=== PATIENT | female | born 1970 | race Caucasian/White ===

== ENCOUNTER 2016-12-15 15:30 | Emergency (ER) | payer OTHER ==
--- NOTE | 2016-12-15 15:48 | PDOC ---
History of Present Illness - General History Source: Patient Exam Limitations: No Limitations <Janes Jiang - Last Filed: 12/15/16 18:02> <CalvinrealReynaldo - Last Filed: 12/16/16 11:15> - General Chief Complaint: Chest Pain Stated Complaint: CHEST PAIN Time Seen by Provider: 12/15/16 15:48 - History of Present Illness Initial Comments: 12/15/16 15:56 The patient is a 46 year old female presenting with her friend, with a significant past medical history anxiety, who presents to the emergency department with chest pain and shortness of breath onset today for the past 5 hours. She describes the chest pain as onset when she woke up, localized on the left side, ranging from mild to moderate, without radiation. She notes that touching the area and taking a deep breath exacerbates the pain. She also notes that she has had this kind of pain before but never prolonged for this long. She states that this pain is usually brought upon by stress. The patient had a stress test 4 years ago that was within normal limits. She has a cardiology consultation set up for next week for medical clearance. She denies any recent travel or recent sickness. The patient denies headache and dizziness. Denies fever, chills, nausea, vomit, diarrhea and constipation. Denies dysuria, frequency, urgency and hematuria. Allergies: None Past surgical history: None reported Social history: Tobacco use. No alcohol, drug use reported (Janes Jiang) Past History <Janes Jiang - Last Filed: 12/15/16 18:02> - Past Medical History Anemia: No Asthma: No Cancer: No Cardiac Disorders: No CVA: No COPD: No CHF: No Dementia: No Diabetes: No GI Disorders: No Disorders: No HTN: No Hypercholesterolemia: Yes Liver Disease: No Seizures: No Thyroid Disease: No - Surgical History Abdominal Surgery: No Appendectomy: No Cardiac Surgery: No Cholecystectomy: No Lung Surgery: No Neurologic Surgery: No Orthopedic Surgery: No - Psycho/Social/Smoking Cessation Hx Anxiety: No Suicidal Ideation: No Smoking Status: No Smoking History: Former smoker Have you smoked in the past 12 months: Yes Number of Cigarettes Smoked Daily: 7 Information on smoking cessation initiated: Yes 'Breaking Loose' booklet given: 12/15/16 Hx Alcohol Use: No Drug/Substance Use Hx: No Substance Use Type: None Hx Substance Use Treatment: No <Reynaldo Guzman - Last Filed: 12/16/16 11:15> - Past Medical History Allergies/Adverse Reactions: Allergies Allergy/AdvReac Type Severity Reaction Status Date / Time No Known Allergies Allergy Verified 12/15/16 15:34 Home Medications: Ambulatory Orders No Known Home Medication 12/15/16 Cardiac Specific PMH - Complaint Specific PMHX Pacemaker: No <Reynaldo Guzman - Last Filed: 12/16/16 11:15> Review of Systems - Review of Systems Able to Perform ROS?: Yes <Janes Jiang - Last Filed: 12/15/16 18:02> <Reynaldo Guzman - Last Filed: 12/16/16 11:15> - Review of Systems Comments:: 12/15/16 15:56 GENERAL/CONSTITUTIONAL: No fever or chills. No weakness. HEAD, EYES, EARS, NOSE AND THROAT: No change in vision. No ear pain or discharge. No sore throat. CARDIOVASCULAR: +Chest pain and shortness of breath RESPIRATORY: No cough, wheezing, or hemoptysis. GASTROINTESTINAL: No nausea, vomiting, diarrhea or constipation. GENITOURINARY: No dysuria, frequency, or change in urination. MUSCULOSKELETAL: No joint or muscle swelling or pain. No neck or back pain. SKIN: No rash NEUROLOGIC: No headache, vertigo, loss of consciousness, or change in strength/ sensation. ENDOCRINE: No increased thirst. No abnormal weight change HEMATOLOGIC/LYMPHATIC: No anemia, easy bleeding, or history of blood clots. ALLERGIC/IMMUNOLOGIC: No hives or skin allergy. (Janes Jiang) *Physical Exam <Janes Jiang - Last Filed: 12/15/16 18:02> <Reynaldo Guzman - Last Filed: 12/16/16 11:15> - Vital Signs Last Vital Signs Temp Pulse Resp BP Pulse Ox 98.1 F 71 16 128/77 99 12/15/16 15:30 12/15/16 19:00 12/15/16 19:00 12/15/16 19:00 12/15/16 19:00 - Physical Exam Comments: 12/15/16 15:56 GENERAL: Awake, alert, and fully oriented, in no acute distress HEAD: No signs of trauma, normocephalic, atraumatic EYES: PERRLA, EOMI, sclera anicteric, conjunctiva clear ENT: Auricles normal inspection, hearing grossly normal, nares patent, oropharynx clear without exudates. Moist mucosa NECK: Normal ROM, supple, no lymphadenopathy, JVD, or masses LUNGS: No distress, speaks full sentences, clear to auscultation bilaterally CHEST: +Chest wall tenderness. HEART: Regular rate and rhythm, normal S1 and S2, no murmurs, rubs or gallops, peripheral pulses normal and equal bilaterally. ABDOMEN: Soft, nontender, normoactive bowel sounds. No guarding, no rebound. No masses EXTREMITIES: Normal inspection, Normal range of motion, no edema. No clubbing or cyanosis. NEUROLOGICAL: Cranial nerves II through XII grossly intact. Normal speech, normal gait, no focal sensorimotor deficits SKIN: Warm, Dry, normal turgor, no rashes or lesions noted. (Janes Jiang) ED Treatment Course - LABORATORY CBC & Chemistry Diagram: 12/15/16 16:05 12/15/16 16:05 <Janes Jiang - Last Filed: 12/15/16 18:02> - LABORATORY CBC & Chemistry Diagram: 12/15/16 16:05 12/15/16 16:05 <Reynaldo Guzman - Last Filed: 12/16/16 11:15> - ADDITIONAL ORDERS Additional order review: 12/15/16 16:05 RBC 4.08 MCV 94.5 MCHC 33.2 RDW 12.1 MPV 9.1 Neutrophils % 73.1 Lymphocytes % 18.5 Monocytes % 6.9 Eosinophils % 1.2 Basophils % 0.3 - RADIOLOGY Radiology Studies Ordered: Category Date Time Status CHEST X-RAY PORTABLE* [RAD] Stat Radiology 12/15/16 15:52 Completed Radiograph Interpretation: 12/15/16 16:37 Chest X-Ray Reviewed by: Dr. Niranjan Lofton Impression: No acute pathology. No significant change. (Janes Jiang) - Medications Given in the ED: ED Medications Discontinued Medications Generic Name Dose Route Start Last Admin Trade Name Freq PRN Reason Stop Dose Admin Aspirin 325 mg 12/15/16 15:54 12/15/16 16:00 Ecotrin - PO 12/15/16 15:55 325 mg ONCE ONE Administration Nitroglycerin 0.4 mg 12/15/16 15:54 12/15/16 16:00 Nitrostat - SL 0.4 mg Q5M PRN Administration FOR CHEST PAIN *DC/Admit/Observation/Transfer <Janes Jiang - Last Filed: 12/15/16 18:02> - Discharge Dispostion Admit: No <Reynaldo Guzman - Last Filed: 12/16/16 11:15> Diagnosis at time of Disposition: Chest pain Qualifiers: Chest pain type: unspecified Qualified Code(s): R07.9 - Chest pain, unspecified - Discharge Dispostion Disposition: HOME Condition at time of disposition: Stable - Referrals Referrals: Roman Wheat MD [Primary Care Provider] - Call tomorrow - Patient Instructions Printed Discharge Instructions: DI for Atypical Chest Pain - Attestations Scribe Attestion: 12/15/16 15:57 Documentation prepared by Janes Jiang, acting as health care / medical job titles for Reynaldo Guzman MD (Janes Jiang)
[2016-12-15 15:53] VITALS: TEMP 98.1; BMI 24.8
[2016-12-15] MEDS ORDERED: NITROGLYCERIN SUBLINGUAL 1/150 0.4 MG TAB SL PRN (15:54)
[2016-12-15] MEDS ORDERED: ASPIRIN 325 MG ENTERIC COATED TABLET (FP) PO ONE (15:54)
[2016-12-15] MEDS ORDERED: ASPIRIN 325 MG TABLET ONE (15:57)
[2016-12-15] MEDS ORDERED: NITROGLYCERIN SUBLINGUAL 1/150 0.4 MG TAB ONE (15:57)
[2016-12-15] MEDS ORDERED: ASPIRIN 81 MG CHEWABLE TABLETS ONE (16:01)
[2016-12-15 16:29] LABS: BASOPHIL 0.3 % (0-2.0); EOSINOPHIL 1.2 % (0-4.5); MCH 31.4 pg (25.7-33.7); MCHC 33.2 g/dl (32.0-36.0); MEAN CELL VOLUME 94.5 fl (80-96); MEAN PLT VOLUME 9.1 fl (7.5-11.1); NEUTROPHILS 73.1 % (42.8-82.8); PLATELET COUNT 183 K/MM3 (134-434); RDW 12.1 % (11.6-15.6); WHITE BLOOD COUNT 6.9 K/mm3 (4.0-10.0)
[2016-12-15 16:52] LABS: CPK(DFH) 76 IU/L (26-140)
[2016-12-15 16:53] LABS: ALK PHOS 52 U/L (32-92); ANION GAP 8 (8-16); BILIRUBIN,TOTAL 0.3 mg/dl (0.2-1.0); CALCIUM 9.1 mg/dl (8.4-10.2); CO2 24 mmol/L (22-28); CREATININE 0.5 mg/dl (0.6-1.3); GLUCOSE,RANDOM 102 mg/dl (74-106); SGOT/AST 15 U/L (10-42); TOT PROT 6.3 g/dl (6.4-8.3)
[2016-12-15 17:15] LABS: TROPONIN I (DFP) < 0.03 ng/ml (0.03-0.50)
[2016-12-15 17:20] LABS: SGPT/ALT 9 U/L (10-40)
[2016-12-15 17:36] LABS: URINE APPEARANCE Clear; URINE BILIRUBIN Negative (NEGATIVE); URINE BLOOD Trace-intact (NEGATIVE); URINE GLUCOSE (UA) Negative (NEGATIVE); URINE KETONE Negative (NEGATIVE); URINE LEUK ESTERASE Negative (NEGATIVE); URINE NITRITE Negative (NEGATIVE); URINE PROTEIN Negative (NEGATIVE); URINE UROBILINOGEN 0.2 E.U/dl (0.2-1.0)
[2016-12-15 17:37] LABS: URINE COLOR YELLOW
[2016-12-15 19:15] VITALS: BP 128/77; PULSE 71
[2016-12-15 19:35] LABS: CPK(DFH) 68 IU/L (26-140)
[2016-12-15 19:47] LABS: TROPONIN I (DFP) < 0.03 ng/ml (0.03-0.50)
--- NOTE | 2016-12-15 19:56 | PDOC ---
*Physical Exam - Vital Signs Last Vital Signs Temp Pulse Resp BP Pulse Ox 98.1 F 71 16 128/77 99 12/15/16 15:30 12/15/16 19:00 12/15/16 19:00 12/15/16 19:00 12/15/16 19:00 ED Treatment Course - LABORATORY CBC & Chemistry Diagram: 12/15/16 16:05 12/15/16 16:05 - ADDITIONAL ORDERS Additional order review: Laboratory Results 12/15/16 12/15/16 12/15/16 19:10 17:20 16:05 D-Dimer Sodium Potassium Chloride Carbon Dioxide Anion Gap BUN Creatinine Creat Clearance w eGFR Random Glucose Calcium Total Bilirubin AST ALT Alkaline Phosphatase Creatine Kinase 68 76 Troponin I < 0.03 L < 0.03 L Total Protein Albumin Urine Color Yellow Urine Appearance Clear Urine pH 7.0 Ur Specific Tibbie 1.015 Urine Protein Negative Urine Glucose (UA) Negative Urine Ketones Negative Urine Blood Trace-intact Urine Nitrite Negative Urine Bilirubin Negative Urine Urobilinogen 0.2 e.u/dl Ur Leukocyte Esterase Negative Urine HCG, Qual Negative 12/15/16 12/15/16 16:05 16:05 D-Dimer < 200 Sodium 140 Potassium 4.0 Chloride 108 H Carbon Dioxide 24 Anion Gap 8 BUN 11 Creatinine 0.5 L Creat Clearance w eGFR > 60 Random Glucose 102 Calcium 9.1 Total Bilirubin 0.3 AST 15 ALT 9 L Alkaline Phosphatase 52 Creatine Kinase Troponin I Total Protein 6.3 L Albumin 4.0 Urine Color Urine Appearance Urine pH Ur Specific Tibbie Urine Protein Urine Glucose (UA) Urine Ketones Urine Blood Urine Nitrite Urine Bilirubin Urine Urobilinogen Ur Leukocyte Esterase Urine HCG, Qual 12/15/16 16:05 RBC 4.08 MCV 94.5 MCHC 33.2 RDW 12.1 MPV 9.1 Neutrophils % 73.1 Lymphocytes % 18.5 Monocytes % 6.9 Eosinophils % 1.2 Basophils % 0.3 - Medications Given in the ED: ED Medications Discontinued Medications Generic Name Dose Route Start Last Admin Trade Name Freq PRN Reason Stop Dose Admin Aspirin 325 mg 12/15/16 15:54 12/15/16 16:00 Ecotrin - PO 12/15/16 15:55 325 mg ONCE ONE Administration Progress Note - Progress Note Progress Note: ASYMPTOMATIV NEG TROPS PER INSTRUCTIONS AND W NO SUSP FOR ACUTE ISSUES WILL D/C *DC/Admit/Observation/Transfer Diagnosis at time of Disposition: Chest pain Qualifiers: Chest pain type: unspecified Qualified Code(s): R07.9 - Chest pain, unspecified - Discharge Dispostion Condition at time of disposition: Stable - Referrals Referrals: Roman Wheat MD [Primary Care Provider] - Call tomorrow - Patient Instructions Printed Discharge Instructions: DI for Atypical Chest Pain - Post Discharge Activity
--- NOTE | 2016-12-17 21:34 | EKG ---
Test Reason : Blood Pressure : / mmHG Vent. Rate : 079 BPM Atrial Rate : 079 BPM P-R Int : 142 ms QRS Dur : 084 ms QT Int : 368 ms P-R-T Axes : 043 015 040 degrees QTc Int : 421 ms NORMAL SINUS RHYTHM NORMAL ECG NO PREVIOUS ECGS AVAILABLE Confirmed by MULUGETA CISNEROS MD ([id number]) on 12/17/2016 9:33:33 PM Referred By: ANNE-MARIE Confirmed By:MULUGETA CISNEROS MD
== END 2016-12-15 20:05 | disposition home or self-care (01) ==
LOC: FER 15:30
DX: R07.9 Chest pain, unspecified (principal); F41.9 Anxiety disorder, unspecified; E78.00 Pure hypercholesterolemia, unspecified; Z87.891 Personal history of nicotine dependence
CPT/HCPCS: 36415; 71010-TC; 80053; 81003; 82550; 84484; 84703; 85025; 85379; 93005; 93010; 99285-25

== ENCOUNTER 2018-05-13 22:51 | Emergency (ER) | payer OTHER ==
--- NOTE | 2018-05-13 22:54 | PDOC ---
History of Present Illness - General Chief Complaint: Pain, Acute Stated Complaint: R SHOULDER PAIN Time Seen by Provider: 05/13/18 22:54 History Source: Patient Exam Limitations: No Limitations - History of Present Illness Initial Comments: 05/13/18 23:01 This is a 47-year-old female who comes in complaining of bilateral Some right greater than left and right shoulder discomfort. Patient denies any heavy lifting, injury to the neck or history of similar symptoms in the past. 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 Patient saw her primary care doctor today and was started on tramadol which she said is helped a little bit but not very much. Patient's called her primary care doctor and was told to come to the ED for some x-rays. PAST MEDICAL HISTORY: no significant history PAST SURGICAL HISTORY: no significant history FAMILY HISTORY: no pertinant history SOCIAL HISTORY: Pt lives with family and is employed. MEDICATIONS: reviewed ALLERGIES: As per nursing notes Review of Systems General: No fevers or chills, no weakness, no weight loss HEENT: No change in vision. No sore throat,. No ear pain CardioVascular: No chest pain or shortness of breath Respiratory:No cough, or wheezing. Gastrointestinal: no nausea, vomitting, diarrhea or constipation, No rectal bleeding Genitourinary: No dysuria, hematuria, or frequency Musculoskeletal: No joint or muscle pain or swelling Neurologic: No headache, vertigo, dizziness or loss of consciousness Psychiatric: nor depression Skin: No rashes or easy bruising Endocrine: no increased thirst or abnormal weight change Allergic: no skin or latex allergy All other systems reviewed and normal GENERAL: The patient is awake, alert, and fully oriented, in no acute distress. HEAD: Normal with no signs of trauma. NECK: There is no tenderness on palpation of the cervical spine however there is bilateral paraspinal spasm of the neck right greater than left. EYES: Pupils equal, round and reactive to light, extraocular movements intact, sclera anicteric, conjunctiva clear. EXTREMITIES: Normal range of motion, no edema. Right shoulder: There is decreased range of motion secondary to discomfort and pain. There is no bony tenderness but there is generalized discomfort on palpation neurovascular is intact. NEUROLOGICAL: Normal speech, normal gait. grossly intact PSYCH: Normal mood, normal affect. SKIN: Warm, Dry, normal turgor, no rashes or lesions noted. X-rays: Cervical: No acute fracture, subluxation or pathology Right shoulder: No acute pathology Assessment and plan: This is a 47-year-old female who comes in complaining of neck pain and spasm radiating to her right shoulder. Patient's x-rays were negative for any acute processes. Patient given a muscle relaxant and pain medication. Patient discharged home with prescriptions. Patient has a primary care doctor to follow-up with. 05/14/18 00:13 Past History - Past Medical History Allergies/Adverse Reactions: Allergies Allergy/AdvReac Type Severity Reaction Status Date / Time No Known Allergies Allergy Verified 12/15/16 15:34 Home Medications: Ambulatory Orders No Known Home Medication 12/15/16 Methocarbamol [Robaxin -] 500 mg PO TID #21 tablet 05/13/18 Anemia: No Asthma: No Cancer: No Cardiac Disorders: No CVA: No COPD: No CHF: No Dementia: No Diabetes: No GI Disorders: No Disorders: No HTN: No Hypercholesterolemia: Yes Liver Disease: No Seizures: No Thyroid Disease: No - Surgical History Abdominal Surgery: No Appendectomy: No Cardiac Surgery: No Cholecystectomy: No Lung Surgery: No Neurologic Surgery: No Orthopedic Surgery: No - Suicide/Smoking/Psychosocial Hx Smoking Status: No Smoking History: Former smoker Have you smoked in the past 12 months: Yes Number of Cigarettes Smoked Daily: 7 'Breaking Loose' booklet given: 12/15/16 Hx Alcohol Use: No Drug/Substance Use Hx: No Substance Use Type: None Hx Substance Use Treatment: No *DC/Admit/Observation/Transfer Diagnosis at time of Disposition: Cervical radiculopathy - Discharge Dispostion Disposition: HOME Condition at time of disposition: Good Decision to Admit order: No - Prescriptions Prescriptions: Methocarbamol [Robaxin -] 500 mg PO TID #21 tablet - Referrals Referrals: Roman Wheat MD [Primary Care Provider] - - Patient Instructions Additional Instructions: Continue to take the tramadol as prescribed. In addition to that get the prescription for Robaxin filled and take it as directed for the spasm. Return to the emergency department immediately with ANY new, persistent or worsening symptoms. Continue any medications as previously prescribed by your physician. You should follow up with your primary doctor as soon as possible regarding today's emergency department visit. . Please make sure your doctor reviews the results of your emergency evaluation. Thank you for coming to the Emergency Department today for your care. It was a pleasure to see you today. Please note that your evaluation is INCOMPLETE until you follow-up with your doctor. - Post Discharge Activity
[2018-05-13 22:59] VITALS: BP 117/80; PULSE 75; TEMP 98; BMI 25.6
[2018-05-13] MEDS ORDERED: diazePAM 5 MG TABLET PO ONE (23:00)
[2018-05-13] MEDS ORDERED: KETOROLAC TROMETHAMINE 60 MG/2 ML VIAL IM ONE (23:01)
[2018-05-13] MEDS ORDERED: diazePAM 5 MG TABLET ONE (23:03)
[2018-05-13] MEDS ORDERED: KETOROLAC TROMETHAMINE 60 MG/2 ML VIAL ONE (23:03)
[2018-05-14] MEDS ORDERED: predniSONE 20 MG TABLET (UD) PO ONE (00:18)
== END 2018-05-14 00:16 | disposition home or self-care (01) ==
LOC: FER 22:51
PROC: 3E0233Z Introduction of Anti-inflammatory into Muscle, Percutaneous Approach (ICD-10-PCS; principal; 2018-05-13)
DX: M54.12 Radiculopathy, cervical region (principal); Z87.891 Personal history of nicotine dependence
CPT/HCPCS: 72050-TC-FY; 73030-TC-RT-FY; 99282-25

== ENCOUNTER 2018-11-17 14:24 | Emergency (ER) | payer OTHER ==
[2018-11-17 14:30] VITALS: BP 103/59; TEMP 97.8; BMI 26.2
[2018-11-17 15:04] LABS: PH,URINE 5.5 (4.5-8); URINE APPEARANCE Clear; URINE BILIRUBIN Negative (NEGATIVE); URINE COLOR Yellow; URINE GLUCOSE (UA) Negative (NEGATIVE); URINE KETONE Trace (NEGATIVE); URINE LEUK ESTERASE Negative (NEGATIVE); URINE NITRITE Negative (NEGATIVE); URINE PROTEIN Negative (NEGATIVE)
[2018-11-17] MEDS ORDERED: morphine CARPU-JECT 4 MG/1 ML DISP.SYRIN IVPUSH ONE (15:14)
[2018-11-17] MEDS ORDERED: ONDANSETRON 4 MG/2 ML VIAL IVPUSH ONE (15:15)
[2018-11-17] MEDS ORDERED: ACETAMINOPHEN 1000 MG/100 ML VIAL (NON FORMULARY) IVPB ONE (15:17)
[2018-11-17] MEDS ORDERED: ONDANSETRON 4 MG/2 ML VIAL ONE (15:19)
[2018-11-17] MEDS ORDERED: morphine SULFATE 4 MG/ML VIAL ONE (15:20)
--- NOTE | 2018-11-17 15:21 | PDOC ---
History of Present Illness - History of Present Illness Initial Comments: 11/17/18 15:59 The patient is a 48 year old female with a past medical history of hyperlipidemia, hysterectomy and spinal stenosis who presents to the emergency department for evaluation of lower back pain. The patient reports she was in her usual state of good health last night until she awoke at 7:20am with chest heaviness and nausea. She reports that when dropping her kids at school this morning she experienced an episode of non-bloody vomiting at around 8:20am. During this episode, she reports concurrent lower back pain and urinary incontinence, but notes her chest heaviness and nausea subsided. She describes her lower back pain as persistent and worsening, radiating to her lower extremities. Since this episode she reports feeling lethargic and her notes she has difficulty ambulating. Patient states they have never experienced this before. Patient notes having a normal stress test done on December 2016. As per EMR, patient had an endoscopy with biopsy showing moderate gastritis in 2011. Patient was brought in by her who translated for the patient. Denies history of kidney stones. Denies dyspnea on exertion, cough, headache and lightheadedness. Denies fevers, chills, diaphoresis, diarrhea, constipation , or any urinary issues. Allergies: No known drug allergies Social History: Tobacco use (5-6 cigarettes/day), No reported alcohol or illicit drug use. Surgical History: hysterectomy, tubal ligation, colonoscopy, endoscopy PCP: Roman Wheat MD ([phone]) <Farhana Aldridge - Last Filed: 11/17/18 15:59> - General History Source: Patient, Spouse <Joselin Brittonele - Last Filed: 11/17/18 18:09> - General Chief Complaint: Back Pain Stated Complaint: BACK PAIN Time Seen by Provider: 11/17/18 14:30 Past History <Farhana Aldridge - Last Filed: 11/17/18 15:59> - Past Medical History Anemia: No Asthma: No Cancer: No Cardiac Disorders: No CVA: No COPD: No CHF: No Dementia: No Diabetes: No GI Disorders: No Disorders: No HTN: No Hypercholesterolemia: Yes Liver Disease: No Seizures: No Thyroid Disease: No - Surgical History Abdominal Surgery: No Appendectomy: No Cardiac Surgery: No Cholecystectomy: No Lung Surgery: No Neurologic Surgery: No Orthopedic Surgery: No - Suicide/Smoking/Psychosocial Hx Smoking Status: No Smoking History: Current every day smoker Have you smoked in the past 12 months: Yes Number of Cigarettes Smoked Daily: 6 Information on smoking cessation initiated: No 'Breaking Loose' booklet given: 12/15/16 Hx Alcohol Use: No Drug/Substance Use Hx: No Substance Use Type: None Hx Substance Use Treatment: No <Davide Britton - Last Filed: 11/17/18 18:09> - Past Medical History Allergies/Adverse Reactions: Allergies Allergy/AdvReac Type Severity Reaction Status Date / Time No Known Allergies Allergy Verified 11/17/18 14:26 Home Medications: Ambulatory Orders No Known Home Medication 12/15/16 Methocarbamol [Robaxin -] 500 mg PO TID #21 tablet 05/13/18 Cyclobenzaprine HCl [Flexeril 10 mg] 10 mg PO BID PRN #20 tablet 05/14/18 Methylprednisolone [Medrol Dose Madi] 4 mg PO ASDIR #21 tablet 05/14/18 Naproxen 500 mg PO BID PRN #20 tablet 11/17/18 Tramadol HCl 50 mg PO BID PRN #10 tablet MDD 2 tabs 11/17/18 Review of Systems - Review of Systems Constitutional: No: Chills, Fever HEENTM: No: Nose Congestion, Throat Pain Respiratory: No: Cough, Shortness of Breath Cardiac (ROS): Yes: Chest Pain. No: Edema, Syncope ABD/GI: Yes: Nausea, Vomiting. No: Constipated, Diarrhea : No: Dysuria, Frequency Musculoskeletal: Yes: Back Pain Neurological: No: Headache, Paresthesia, Weakness All Other Systems: Reviewed and Negative <Davide Britton - Last Filed: 11/17/18 18:09> *Physical Exam - Vital Signs Last Vital Signs Temp Pulse Resp BP Pulse Ox 97.8 F 102 H 20 103/59 L 98 11/17/18 14:24 11/17/18 14:24 11/17/18 14:24 11/17/18 14:24 11/17/18 14:24 - Physical Exam Comments: 11/17/18 15:35 GENERAL: +mild distress secondary to lower back pain. The patient is awake, alert, and fully oriented. HEAD: Normal with no signs of trauma. EYES: Pupils equal, round and reactive to light, extraocular movements intact, sclera anicteric, conjunctiva clear with no pallor. ENT: Moist mucous membranes. NECK: Normal range of motion, supple without lymphadenopathy, JVD, or masses. LUNGS: Breath sounds equal, clear to auscultation bilaterally. No wheeze/ crackles. HEART: Regular rate and rhythm, normal S1 and S2 without murmur or rub. ABDOMEN: +Tenderness to RLQ and suprapubic region with some guarding and rebound. Soft, nondistended. BS wnl. No palpable masses. No hepatosplenomegaly. EXTREMITIES: +Diffuse low back discomfort with palpation without midline spine tenderness and deformity. Normal range of motion, no edema. No clubbing or cyanosis. No cords, erythema, or tenderness. NEUROLOGICAL: 5/5 flexion and extension of bilateral hips, knees, ankles, toes. PSYCH: Normal mood, normal affect. SKIN: Warm, Dry, normal turgor, no rashes or lesions noted. <Farhana Aldridge - Last Filed: 11/17/18 15:59> - Vital Signs Last Vital Signs Temp Pulse Resp BP Pulse Ox 97.8 F 102 H 20 103/59 L 98 11/17/18 14:24 11/17/18 14:24 11/17/18 14:24 11/17/18 14:24 11/17/18 14:24 <Davide Britton - Last Filed: 11/17/18 18:09> Moderate Sedation - Procedure Monitoring Vital Signs: Procedure Monitoring Vital Signs Temperature 97.8 F 11/17/18 14:24 Pulse Rate 102 H 11/17/18 14:24 Respiratory Rate 20 11/17/18 14:24 Blood Pressure 103/59 L 11/17/18 14:24 O2 Sat by Pulse Oximetry (%) 98 11/17/18 14:24 <Farhana Aldridge - Last Filed: 11/17/18 15:59> - Procedure Monitoring Vital Signs: Procedure Monitoring Vital Signs Temperature 97.8 F 11/17/18 14:24 Pulse Rate 102 H 11/17/18 14:24 Respiratory Rate 20 11/17/18 14:24 Blood Pressure 103/59 L 11/17/18 14:24 O2 Sat by Pulse Oximetry (%) 98 11/17/18 14:24 <Davide Britton - Last Filed: 11/17/18 18:09> Heart Score/ECG Review #1 ECG reviewed & interpreted by me at: 15:25 General ECG Interpretation: Sinus Rhythm, Normal Rate (80), Normal Intervals ( qtc 424, irbbb), No acute ischemic changes Compared to previous ECG there are: No significant change (2016) <Davide Britton - Last Filed: 11/17/18 18:09> ED Treatment Course - LABORATORY CBC & Chemistry Diagram: 11/17/18 15:15 11/17/18 15:25 - ADDITIONAL ORDERS Additional order review: Laboratory Results 11/17/18 14:44 Urine Color Yellow Urine Appearance Clear Urine pH 5.5 Ur Specific [place] >= 1.030 Urine Protein Negative Urine Glucose (UA) Negative Urine Ketones Trace Urine Blood 2+ H Urine Nitrite Negative Urine Bilirubin Negative Urine Urobilinogen 1.0 Ur Leukocyte Esterase Negative - Medications Given in the ED: ED Medications Discontinued Medications Generic Name Dose Route Start Last Admin Trade Name Harry PRN Reason Stop Dose Admin Acetaminophen 1,000 mg 11/17/18 15:17 11/17/18 15:32 Ofirmev Injection - IVPB 11/17/18 15:18 1,000 mg ONCE ONE Administration Morphine Sulfate 4 mg 11/17/18 15:14 11/17/18 15:29 Morphine Injection - IVPUSH 11/17/18 15:15 4 mg ONCE ONE Administration Ondansetron HCl 4 mg 11/17/18 15:15 11/17/18 15:25 Zofran Injection IVPUSH 11/17/18 15:16 4 mg ONCE ONE Administration <Farhana Aldridge - Last Filed: 11/17/18 15:59> - LABORATORY CBC & Chemistry Diagram: 11/17/18 15:15 11/17/18 15:25 - ADDITIONAL ORDERS Additional order review: Laboratory Results 11/17/18 14:44 Urine Color Yellow Urine Appearance Clear Urine pH 5.5 Ur Specific [place] >= 1.030 Urine Protein Negative Urine Glucose (UA) Negative Urine Ketones Trace Urine Blood 2+ H Urine Nitrite Negative Urine Bilirubin Negative Urine Urobilinogen 1.0 Ur Leukocyte Esterase Negative - RADIOLOGY Radiology Studies Ordered: Category Date Time Status CHEST X-RAY PORTABLE* [RAD] Stat Radiology 11/17/18 15:14 Ordered <Davide Britton - Last Filed: 11/17/18 18:09> Medical Decision Making - Medical Decision Making 11/17/18 15:21 48-year-old female with history of well-controlled high cholesterol and spinal stenosis presents with episode of vomiting earlier today and persistent low back pain. Patient was in her usual state of normal health until she awoke this morning and experienced epigastric/chest burning with nausea that persisted until she vomited about 40 minutes later. The vomit was nonbloody and nonbilious , at that time her epigastric and chest burning resolved. There was no associated diaphoresis or shortness of breath with the chest burning, and it was nonexertional. While vomiting, patient felt sudden onset of low back pain that has been persistent and worse with positional changes and ambulating. The pain is localized to her low back but radiates to her legs without motor or sensory deficit. While she did have an episode of urinary incontinence while vomiting, she has not had any incontinence or dysuria/frequency with the back pain. Did not take anything for pain, presents for evaluation. Denies any direct injury to her low back, has no cardiopulmonary complaints at this time. Has unlimited exercise tolerance at baseline, had a normal stress test in December 2016. Vital signs are normal Patient is generally well-appearing lying in stretcher speaking full sentences, in intermittent distress secondary to low back pain Heart and lung exam is normal Abdomen with right lower quadrant and suprapubic tenderness to palpation, slight localized guarding Low back discomfort without obvious deformity or step-off or midline tenderness , neurologically intact distally 48-year-old female with episode of dyspepsia/vomiting this morning complicated by low back strain, probably from strain of vomiting. Likely muscular, no evidence of radiculopathy on exam. Presentation is atypical for any ACS, question primary GI versus etiology with superimposed low back strain. Rule out dyspepsia/gastritis (patient diagnosed with gastritis on endoscopy in 2011) secondary to viral syndrome, rule out appendicitis given the right lower quadrant discomfort, rule out UTI Labs, urinalysis EKG, chest x-ray CT of the abdomen and pelvis No indication for emergent imaging of the spine Pain control, IV fluids Reassess 11/17/18 16:14 No leukocytosis, chemistries are within normal limits, troponin and lipase pending. Urinalysis with 2-5 red blood cells, no white blood cells. On my preliminary review, chest x-ray has no acute pathology Patient significantly improved after pain meds, lying comfortably in stretcher with improved range of motion of lower extremities and resolved low back pain. Awaiting CT of the abdomen and pelvis, will disposition accordingly. 11/17/18 16:58 Ambulated comfortably and independently to CT. Neuro intact, back pain markedly improved. F/U Lipase and CTAP then dispo. CXR without acute pathology. 11/17/18 18:[address] of the abdomen and pelvis without acute pathology, possible stomach wall inflammation and 7 mm appendix noted without any inflammatory changes. There is an ovarian cyst on the right, there are adrenal adenomas. The patient's abdominal exam remains with very slight discomfort in the right pelvis/right lower quadrant on deep palpation, there is no guarding/rebound and no referred tenderness. In the absence of fever/leukocytosis/indicators of appendicitis on CT, she had decision-making with patient and to monitor her abdominal symptoms. Of note, she has no abdominal pain, only discomfort on exam which is reassuring. Her back pain is markedly improved, she remains neurologically intact, she agrees with discharge plan on pain medications and understands return criteria. <Davide Britton - Last Filed: 11/17/18 18:09> *DC/Admit/Observation/Transfer - Attestations Scribe Attestion: 11/17/18 15:37 Documentation prepared by Farhana Aldridge, acting as medical clerk for Davide Britton MD. <Farhana Aldridge - Last Filed: 11/17/18 15:59> <Davide Britton - Last Filed: 11/17/18 18:09> Diagnosis at time of Disposition: Low back strain Qualifiers: Encounter type: initial encounter Qualified Code(s): S39.012A - Strain of muscle, fascia and tendon of lower back, initial encounter Vomiting Qualifiers: Vomiting type: unspecified Vomiting Intractability: non-intractable Nausea presence: with nausea Qualified Code(s): R11.2 - Nausea with vomiting, unspecified - Discharge Dispostion Disposition: HOME Condition at time of disposition: Improved - Prescriptions Prescriptions: Naproxen 500 mg PO BID PRN #20 tablet PRN Reason: Pain Tramadol HCl 50 mg PO BID PRN #10 tablet MDD 2 tabs PRN Reason: Pain Level 6-10 - Referrals Referrals: Roman Wheat MD [Primary Care Provider] - - Patient Instructions Printed Discharge Instructions: DI for Gastritis, DI for Low Back Pain Additional Instructions: Activity as tolerated, avoid bed rest and heavy lifting. Stay hydrated. Blood tests, a urine test, a chest x-ray, and a CAT scan of the abdomen and pelvis showed no acute abnormalities. The vomiting could be due to mild inflammation in the stomach calls gastritis, you can take Pepcid 20 mg daily for the next 5 days. Bring the copy of the CAT scan with you the next time you see you [facility] doctor to evaluate the right ovarian cyst. The back pain is likely due to muscle strain while vomiting and should resolve over the next few days. Naproxen as prescribed as needed for moderate pain, tramadol as prescribed as needed for severe pain. Continue your medications as previously prescribed by your physician. You should follow up with your primary doctor as soon as possible regarding today's emergency department visit. Return to the emergency department for any new or concerning symptoms, particularly persistent or worsening back pain or leg numbness or weakness, bowel or bladder issues, persistent abdominal pain or vomiting/bloody diarrhea, fevers or chills. - Post Discharge Activity
[2018-11-17] MEDS ORDERED: ACETAMINOPHEN INJECTION 100 ML IVPB ONE (15:29)
[2018-11-17 15:36] LABS: EPI CELLS 1+ /HPF; URINE WBC 0-2 (0-5)
[2018-11-17 15:57] LABS: BASO % 0.1 % (0-2.0); EOS % 0.4 % (0-4.5); HEMATOCRIT 42.8 % (32.4-45.2); HEMOGLOBIN 14.2 GM/dl (10.7-15.3); LYMPH % 5.6 % (8-40); MCH 31.7 pg (25.7-33.7); MCHC 33.1 g/dl (32.0-36.0); MEAN CELL VOLUME 95.7 fl (80-96); MEAN PLT VOLUME 9.1 fl (7.5-11.1); MONO % 2.3 % (3.8-10.2); NEUT % 91.6 % (42.8-82.8); PLATELET COUNT 198 K/MM3 (134-434); RBC 4.47 M/mm3 (3.60-5.2); RDW 12.2 % (11.6-15.6); WHITE BLOOD COUNT 8.3 K/mm3 (4.0-10.8)
[2018-11-17 16:05] LABS: ALBUMIN 4.2 g/dl (3.4-5.0); ALK PHOS 73 U/L (45-117); ANION GAP 9 MMOL/L (8-16); BLOOD UREA NITROGEN 16 mg/dl (7-18); CALCIUM 9.1 mg/dl (8.5-10); CHLORIDE 103 mmol/L (98-107); CO2 21 mmol/L (21-32); CREATININE 0.6 mg/dl (0.55-1.3); GLUCOSE,RANDOM 114 mg/dl (74-106); POTASSIUM 3.9 mmol/L (3.5-5.1); SGOT/AST 22 U/L (15-37); SGPT/ALT 23 U/L (13-61); SODIUM 133 mmol/L (136-145); TOT PROT 6.7 g/dl (6.4-8.2)
[2018-11-17 17:46] LABS: LIPASE 113 U/L (73-393)
[2018-11-17 18:21] VITALS: PULSE 86
--- NOTE | 2018-11-18 10:50 | EKG ---
Test Reason : Blood Pressure : / mmHG Vent. Rate : 080 BPM Atrial Rate : 080 BPM P-R Int : 158 ms QRS Dur : 084 ms QT Int : 368 ms P-R-T Axes : 024 020 040 degrees QTc Int : 424 ms NORMAL SINUS RHYTHM NORMAL ECG WHEN COMPARED WITH ECG OF 15-DEC-2016 15:39, NO SIGNIFICANT CHANGE WAS FOUND Confirmed by TARAS FREY, TIMMY ([id number]) on 11/18/2018 10:49:59 AM Referred By: DR COLMENARES Confirmed By:TIMMY GRAJEDA MD
== END 2018-11-17 18:20 | disposition home or self-care (01) ==
LOC: FER 14:24
PROC: 3E033NZ Introduction of Analgesics, Hypnotics, Sedatives into Peripheral Vein, Percutaneous Approach (ICD-10-PCS; principal; 2018-11-17)
PROC: 3E033GC Introduction of Other Therapeutic Substance into Peripheral Vein, Percutaneous Approach (ICD-10-PCS; 2018-11-17)
DX: S39.012A Strain of muscle, fascia and tendon of lower back, initial encounter (principal); R11.2 Nausea with vomiting, unspecified; X58.XXXA Exposure to other specified factors, initial encounter; Y93.89 Activity, other specified; Y92.89 Other specified places as the place of occurrence of the external cause; E78.00 Pure hypercholesterolemia, unspecified; M48.00 Spinal stenosis, site unspecified
CPT/HCPCS: 36415; 71045-TC-FY; 74177-TC; 80053; 81003; 81015; 82550; 83690; 84484; 85025; 93005; 96374; 96375; 99285-25; J0131

== ENCOUNTER 2019-11-02 20:05 | Emergency (ER) | payer OTHER ==
[2019-11-02 20:20] VITALS: BP 116/74; PULSE 77; TEMP 97.9; BMI 26.2
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
[2019-11-02] MEDS ORDERED: ACETAMINOPHEN 500 MG TABLET (FP) PO ONE (20:46)
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
[2019-11-02] MEDS ORDERED: ACETAMINOPHEN 325 MG TABLET (FP) ONE (21:03)
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
== END 2019-11-02 23:33 | disposition home or self-care (01) ==
LOC: JER 20:05
DX: S40.022A Contusion of left upper arm, initial encounter (principal); M54.2 Cervicalgia; W20.8XXA Other cause of strike by thrown, projected or falling object, initial encounter; Y93.89 Activity, other specified; Y92.410 Unspecified street and highway as the place of occurrence of the external cause; E78.00 Pure hypercholesterolemia, unspecified; F17.210 Nicotine dependence, cigarettes, uncomplicated
CPT/HCPCS: 71101-TC-LT-FY; 72125-TC; 73030-TC-LT-FY; 73060-TC-LT-FY; 73070-TC-LT-FY; 99283-25

== ENCOUNTER 2020-04-20 21:24 | Emergency (ER) | payer OTHER ==
[2020-04-20] MEDS ORDERED: SODIUM CHLORIDE 1,000 ML ONE (21:29)
[2020-04-20] MEDS ORDERED: morphine CARPU-JECT 2 MG/1 ML DISP.SYRIN IVPUSH ONE (21:29)
[2020-04-20] MEDS ORDERED: KETOROLAC TROMETHAMINE 30 MG/1 ML VIAL IVPUSH ONE (21:29)
[2020-04-20 21:40] VITALS: BMI 25.7
[2020-04-20] MEDS ORDERED: morphine SULFATE 4 MG/ML VIAL ONE (21:41)
[2020-04-20] MEDS ORDERED: KETOROLAC TROMETHAMINE 30 MG/1 ML VIAL ONE (21:41)
[2020-04-20 21:53] LABS: HCG,QUALITATIVE URINE Negative
[2020-04-20 21:57] LABS: BASO % 0.4 % (0-2.0); EOS % 1.3 % (0-4.5); HEMATOCRIT 39.1 % (32.4-45.2); HEMOGLOBIN 13.7 GM/dl (10.7-15.3); LYMPH % 28.6 % (8-40); MCH 32.2 pg (25.7-33.7); MCHC 35.1 g/dl (32.0-36.0); MEAN CELL VOLUME 91.7 fl (80-96); MEAN PLT VOLUME 8.4 fl (7.5-11.1); NEUT % 63.7 % (42.8-82.8); PLATELET COUNT 220 K/MM3 (134-434); RBC 4.26 M/mm3 (3.60-5.2); RDW 11.9 % (11.6-15.6)
[2020-04-20 22:10] LABS: ALBUMIN 4.6 g/dl (3.4-5.0); BILIRUBIN,TOTAL 0.8 mg/dl (0.2-1); CALCIUM 8.8 mg/dl (8.5-10); CREATININE 0.6 mg/dl (0.55-1.3); POTASSIUM 3.8 mmol/L (3.5-5.1); TOT PROT 7.3 g/dl (6.4-8.2)
[2020-04-21] VITALS: BP 124/80; PULSE 84; TEMP 98.2
== END 2020-04-21 | disposition home or self-care (01) ==
LOC: FER 21:24
PROC: 3E0233Z Introduction of Anti-inflammatory into Muscle, Percutaneous Approach (ICD-10-PCS; principal; 2020-04-20)
PROC: 3E033GC Introduction of Other Therapeutic Substance into Peripheral Vein, Percutaneous Approach (ICD-10-PCS; 2020-04-20)
DX: R10.9 Unspecified abdominal pain (principal)
CPT/HCPCS: 36415; 74176-TC; 80053; 81003; 81015; 84703; 85025; 99285-25

== ENCOUNTER 2020-11-02 14:42 | Emergency (ER) | payer OTHER | END 2020-11-02 16:07 | disposition home or self-care (01) | LOC: JVIRT 14:42 | DX: Z11.52 Encounter for screening for COVID-19 (principal) | CPT/HCPCS: C9803; G2251-GT; Q3014-GT; U0003 ==

== ENCOUNTER 2020-12-23 12:57 | Emergency (ER) | payer OTHER | END 2020-12-23 13:27 | disposition home or self-care (01) | LOC: JVIRT 12:57 | DX: Z11.52 Encounter for screening for COVID-19 (principal); R50.81 Fever presenting with conditions classified elsewhere | CPT/HCPCS: C9803; G2251-GT; U0003 ==

== ENCOUNTER 2021-01-03 11:36 | Emergency (ER) | payer OTHER | END 2021-01-03 11:55 | disposition home or self-care (01) | LOC: JVIRT 11:36 | DX: B34.9 Viral infection, unspecified (principal) | CPT/HCPCS: C9803; G2251-GT; U0003 ==

== ENCOUNTER 2021-01-14 13:03 | Emergency (ER) | payer OTHER | END 2021-01-14 17:07 | disposition home or self-care (01) | LOC: JVIRT 13:03 | DX: U07.1 COVID-19 (principal) | CPT/HCPCS: C9803; G2251-GT; Q3014-GT; U0003 ==

== ENCOUNTER 2021-01-28 17:54 | Emergency (ER) | payer OTHER | END 2021-01-28 23:31 | disposition home or self-care (01) | LOC: JVIRT 17:54 | DX: U07.1 COVID-19 (principal) | CPT/HCPCS: G2251-GT; Q3014-GT ==